=== PATIENT | male | born 1995 | race Caucasian/White ===

== ENCOUNTER 2022-11-04 12:14 | Emergency (ER) | payer MEDICAID ==
[~2022-11-04] VITALS: Ht 170.2 cm; Wt 85.7 kg
[2022-11-04 12:49] VITALS: BP 121/75
[2022-11-04] MEDS ORDERED: ACETAMINOPHEN 500 MG TAB PO ONE (14:15)
[2022-11-04] MEDS ORDERED: PENICILLIN G BENZ 1200000 UNITS/2 ML SYRG IM ONE (16:00)
[2022-11-04] MEDS ORDERED: IBUP800T26 PO (16:10)
== END 2022-11-04 16:31 | disposition home or self-care (01) ==
LOC: ER 12:14
DX: J02.0 Streptococcal pharyngitis (principal); Z20.822 Contact with and (suspected) exposure to COVID-19
CPT/HCPCS: 36415; 87426; 87804; 87880; 96372; 99283; J0561